=== PATIENT | male | born 1985 | race Caucasian/White ===

== ENCOUNTER 2023-06-23 18:03 | Observation (INO) | payer MEDICAID, SELFPAY ==
--- NOTE | ~2023-06-23 | XR_ITS ---
EXAMINATION: XR chest 1V portable DATE: 06/23/2023 18:28 INDICATION: Chest pain TECHNIQUE: frontal view of the chest was obtained. COMPARISON: None FINDINGS: The lungs are clear with no focal airspace opacities, pulmonary edema, pleural effusion or pneumothor ax. The cardiomediastinal silhouette is normal. Visualized bones and soft tissues are unremarkable. IMPRESSION: 1. Normal chest radiograph. Reviewed, dictated and finalized at location A. IMPRESSION: 1. Normal chest radiograph.
--- NOTE | ~2023-06-23 | MR_ITS ---
EXAMINATION: MR brain/brain stem wo/w con DATE: 06/24/2023 09:02 INDICATION: Altered mental status with syncopal episode TECHNIQUE: Magnetic resonance imaging (MRI) of the brain and brainstem was performed without and with 15 mL Multihance intravenous contrast. Sequences included sagittal and axial T1-weighted SE, axial d iffusion-weighted FS SE, axial T2*-weighted GRE, axial T2-weighted FLAIR, and axial T2-weighted FSE. Postcontrast axial and coronal T1-weighted SE was obtained. Apparent diffusion coefficient (ADC) maps were created. COMPARISON: Head CT dated 06/23/2023 FINDINGS: There are no areas of restricted diffusion to suggest acute infarction. No intracranial hemorrhage or abnormal intracranial mass lesion. There are no intraparenchymal signal abnormalities seen on the ot her pulse sequences. The ventricles are symmetric and normal in size. There are no abnormal extra-axi al fluid collections. Flow voids are seen in the cerebral arteries on the T2-weighted sequences consi stent with their expected patency. Visualized orbits and soft tissues are unremarkable. There are no areas of abnormal enhancement on the post contrast images. IMPRESSION: 1. Normal brain MR. Reviewed, dictated and finalized at location A. IMPRESSION: 1. Normal brain MR.
--- NOTE | ~2023-06-23 | CT_ITS ---
EXAMINATION: CT brain wo con DATE: 06/23/2023 20:31 INDICATION: Syncope TECHNIQUE: Computed tomography (CT) of the head was performed without intravenous contrast. Sagittal and coronal reconstructions were performed. The mA was adjusted according to patient size. Iterative reconstruction technique was employed. The dose-length product was 605.33 mGy-cm. COMPARISON: None FINDINGS: No acute intracranial hemorrhage, acute infarction or abnormal extra axial fluid collection. Couple s mall regions of decreased white matter attenuation in the anterior left frontal and posterior left te mporal lobes. Ventricles are normal and symmetric. No mass/mass effect. The orbits, paranasal sinuses and mastoid air cells are normal. IMPRESSION: 1. Couple small foci of decreased white matter attenuation in the left frontal and left temporal lobe s which is atypical for age. The differential diagnosis includes premature chronic small vessel ische alok disease (especially if the patient has cardiovascular risk factors), demyelinating disease such a s multiple sclerosis or acute disseminated encephalomyelitis (ADEM), CADASIL (especially if age 20-40 with prominent anterior temporal lobe or external capsule involvement), drug abuse (especially with cerebellar involvement), vasculitis, or reactive astrocytosis (gliosis) secondary to nonspecific etio logy. Consider further evaluation with pre and postcontrast MRI. Reviewed, dictated and finalized at location A. IMPRESSION: 1. Couple small foci of decreased white matter attenuation in the left frontal and left temporal lobes which is atypical for age. The differential diagnosis i ncludes premature chronic small vessel ischemic disease (especially if the maxi ent has cardiovascular risk factors), demyelinating disease such as multiple sc lerosis or acute disseminated encephalomyelitis (ADEM), CADASIL (especially if age 20-40 with prominent anterior temporal lobe or external capsule involvement ), drug abuse (especially with cerebellar involvement), vasculitis, or reactive astrocytosis (gliosis) secondary to nonspecific etiology. Consider further gertrudis luation with pre and postcontrast MRI.
--- NOTE | ~2023-06-23 | CT_ITS ---
EXAMINATION: CTA chest PE abdomen pel DATE: 06/23/2023 21:53 INDICATION: Shortness of breath and chest and abdominal pain TECHNIQUE: Computed tomography (CT) pulmonary angiogram of the chest was performed with 100 mL Omnipa que-350 intravenous contrast. Additional 3D reconstructions utilizing coronal maximum intensity proje ction (MIP) were performed. CT of the abdomen and pelvis was performed with intravenous contrast util izing the same contrast bolus following a short delay. Automated exposure control and iterative recon struction technique were employed. The dose-length product was 854.72 mGy-cm. COMPARISON: None FINDINGS: Chest: Excellent contrast opacification of the pulmonary arteries. There is mild streak artifact from dense contrast in the superior vena cava and right atrium. No significant motion living diagnostic quality study which demonstrates no pulmonary embolism. No pneumonia, pulmonary edema or other pulmonary infi ltrates. Tiny left pleural effusion. Heart size is normal. No pericardial effusion. Thoracic aorta is normal in caliber with no dissection. Bilateral gynecomastia. No pathologically enlarged thoracic ly mphadenopathy. Abdomen/pelvis: There is suggestion of a fine nodular liver surface which could be seen with cirrhosis. There is sple nomegaly measuring 14.0 cm in length along with a recanalized umbilical vein consistent with likely s econdary portal venous hypertension. There is prominent distention of the gallbladder measuring up to 5.5 cm in diameter but without evident wall thickening or pericholecystic inflammatory stranding to suggest acute cholecystitis. Bowels including the appendix are normal. There is a small amount of asc ites scattered throughout the abdomen and pelvis. No abscess or free intraperitoneal gas. Bladder is normal. Metallic densities likely representing a secondary clips along the bilateral spermatic cords. IMPRESSION: 1. Tiny left pleural effusion. No pulmonary embolism or other acute cardiopulmonary disease. 2. Suggestion of subtle liver surface nodularity suspicious for cirrhosis with likely secondary gualberto l venous hypertension characterized by splenomegaly and prominent recanalized umbilical vein. 3. Small amount of likely secondary ascites. 4. Prominent dilation of the gallbladder but without evident wall thickening or pericholecystic dustin rison to more specifically suggest acute cholecystitis. Correlate for Mathew and if clinically indica sissy could further evaluated with other right upper quadrant ultrasound or HIDA scan. Reviewed, dictated and finalized at location A. IMPRESSION: 1. Tiny left pleural effusion. No pulmonary embolism or other acute cardiopulmo nary disease. 2. Suggestion of subtle liver surface nodularity suspicious for cirrhosis with likely secondary portal venous hypertension characterized by splenomegaly and p rominent recanalized umbilical vein. 3. Small amount of likely secondary ascites. 4. Prominent dilation of the gallbladder but without evident wall thickening or pericholecystic comparison to more specifically suggest acute cholecystitis. C orrelate for Mathew and if clinically indicated could further evaluated with ot her right upper quadrant ultrasound or HIDA scan.
[2023-06-23 18:11] VITALS: BP 104/63; PULSE 63; RESP 15; O2SAT 100
--- NOTE | 2023-06-23 18:15 | ECG_ITS ---
Measurements Intervals [place] Rate: 54 P: -7 OH: 127 QRS: 10 QRSD: 122 T: 18 QT: 469 QTc: 445 Interpretive Statements SINUS BRADYCARDIA MODERATE INTRAVENTRICULAR CONDUCTION DELAY [110+ ms QRS DURATION] NO PREVIOUS ECG AVAILABLE FOR COMPARISON Electronically Signed On 06-24-2023 11:34:51 CDT by Rex Patel MD
--- NOTE | 2023-06-23 19:33 | PC.NURSE ---
This RN assumed care of patient. This RN took patient report from MYLA Rosenberg.
[2023-06-23 20:16] LABS: Basophils Percent Auto 0.7 % (0.2-1.2); Eosinophils Absolute Auto 0.3 K/mm3 (0-0.3); Eosinophils Percent Auto 5.1 % (0-4.4); Hemoglobin 10.7 g/dL (14.0-18.0); Immature Granulocyte Absolute 0.01 K/mm3 (0.00-0.031); Immature Granulocyte Percent A 0.2 % (0-0.5); Immature Platelet Fraction Pct 4.6 % (0.9-11.2); Lymphocytes Absolute Auto 1.74 K/mm3 (0.9-3.2); Lymphocytes Percent Auto 29.5 % (18.3-44.2); Mean Corpuscular HGB Conc 33.4 g/dl (32-36); Mean Corpuscular Hemoglobin 32.5 pg (26-34); Mean Corpuscular Volume 97.3 fl (80-100); Mean Platelet Volume 10.2 fl (7.4-10.4); Monocytes Absolute Auto 0.7 K/mm3 (0.1-0.6); Monocytes Percent Auto 11.9 % (2.6-8.5); Neutrophils Absolute Auto 3.1 K/mm3 (1.3-6.7); Neutrophils Percent Auto 52.6 % (45.5-73.1); Platelet Count Result 74 k/mm3 (150-375); Red Blood Count 3.29 M/mm3 (4.6-6.20); Red Cell Distribution Width 14.7 % (11.5-14.5); White Blood Count 5.9 K/mm3 (4.5-10.0)
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
[2023-06-23 20:26] LABS: Alanine Aminotransferase 25 U/L (6-50); Albumin Level 3.4 g/dL (3.5-5.1); Alkaline Phosphatase 71 U/L (38-126); Anion Gap 7 mmol/L (8-16); Aspartate Amino Transferase 46 U/L (17-59); Bilirubin,Total 4.1 mg/dL (0.2-1.3); Blood Urea Nitrogen 6 mg/dL (9-20); Calcium 8.9 mg/dL (8.4-10.2); Carbon Dioxide 24 mmol/L (22-30); Chloride 105 mmol/L (98-107); Estimated CRCL calculation 141 ml/min; Estimated Glomerular Filt Rate > 60; Glucose 87 mg/dL (65-110); Lipase 84 U/L (23-300); Potassium 3.5 mmol/L (3.4-5.0); Sodium 136 mmol/L (137-145)
[2023-06-23 20:37] LABS: INR 1.8
[2023-06-23 20:38] LABS: Anisocytosis 1+ (NORMAL); Partial Thromboplastin Time 39.3 SECONDS (22.3-36.8); Platelet Estimate Decreased (Adequate); Schistocytes Rare (NORMAL); Troponin I < 0.012 ng/mL (0.000-0.034)
[2023-06-23] MEDS: MORPHINE SULFATE (*CRX) 4 MG/ML INJ IV PUSH (20:39)
[2023-06-23] MEDS: ONDANSETRON INJ 4 MG/2 ML VIAL IV PUSH (20:39)
[2023-06-23 20:54] LABS: D Dimer 2.48 ug/mL (<0.48)
[2023-06-23 21:27] VITALS: TEMP 36.4
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
[2023-06-23 23:03] VITALS: O2SAT 98
[2023-06-23 23:24] LABS: Amphetamine Screen Urine Negative (Negative); Barbiturate Screen Urine Negative (Negative); Benzodiazepines Screen Urine Positive (Negative); Cannabinoid Screen Urine Positive (Negative); Cocaine Screen Urine Negative (Negative); Methadone Screen Urine Negative (Negative); Opiate Screen Urine Positive (Negative); Phencyclidine Screen Urine Negative (Negative)
[2023-06-24] VITALS (9 sets, daily range): BP systolic 98–106; BP diastolic 51–66; PULSE 51–82; RESP 16–18; TEMP 36.2–36.4; O2SAT 100
[2023-06-24 00:33] LABS: Troponin I < 0.012 ng/mL (0.000-0.034)
[2023-06-24 02:13] LABS: Troponin I < 0.012 ng/mL (0.000-0.034)
--- NOTE | 2023-06-24 02:26 | PC.NURSE ---
Spoke with Dr. Deluca about patient c/o uncontrolled pain. New order received for morphine 4 mg IVP Q6H PRN as patient was able to tolerate in ED.
[2023-06-24] MEDS: MORPHINE SULFATE (*CRX) 4 MG/ML INJ IV PUSH ×4 (02:37→20:19)
--- NOTE | 2023-06-24 06:00 | ECHO_ITS ---
Patient Info Name: Ar Velasquez Age: 37 years : 1985 Gender: Male Ht: 74 in Wt: 175 lbs BSA: 2.03 m2 HR: 78 bpm BP: 106 / 66 mmHg Technical Quality: Fair Exam Date: 06/24/2023 8:01 AM Exam Location: [facility] Pulmonary Exam Room: 332 Patient Status: Inpatient Admit Date: 06/23/2023 Staff Ordering Physician: Kristyn Chavez PA-C Electronics Utility Worker: Shelli Vaca RDCS Attending Provider: Brunilda Deluca MD Referring Physician: Scott GALARZA; Exam Type: CA echo doppler color flow Study Info Indications - CHEST PAIN SYNCOPE Complete two-dimensional, color flow and Doppler transthoracic echocardiogram is performed. Summary 1. Complete two-dimensional, color flow and Doppler transthoracic echocardiogram is performed. 2. Left ventricular systolic function is normal, estimated at 60-65%. 3. There is no increased left ventricular wall thickness. 4. Left ventricular chamber dimension is normal. 5. The left ventricular diastolic function is normal. 6. There is trace mitral valve regurgitation. 7. There is trace tricuspid valve regurgitation. 8. There is mild pulmonic regurgitation. 9. No pulmonary hypertension, estimated pulmonary arterial systolic pressure is 28 mmHg. Left Ventricle Left ventricular chamber dimension is normal. Left ventricular systolic function is normal, estimated at 60-65%. There is no increased left ventricular wall thickness. Left ventricular septal wall motion is normal. The left ventricular diastolic function is normal. Right Ventricle Right ventricular chamber dimension is normal. Right ventricular systolic function is normal. Left Atria Left atrial chamber dimension is normal. Right Atria Right atrial chamber dimension is normal. Atrial Septum Intact interatrial septum visualized by color flow imaging. Aortic Valve The aortic valve is trileaflet. There is no aortic valve sclerosis. There is no aortic valve stenosis. There is no aortic valve regurgitation. Pulmonic Valve The pulmonic valve is normal. There is no pulmonic valve stenosis. There is mild pulmonic regurgitation. Mitral Valve The mitral valve has normal leaflets. There is no mitral valve stenosis. There is trace mitral valve regurgitation. Tricuspid Valve The tricuspid valve leaflets are normal. There is no significant tricuspid valve stenosis. There is trace tricuspid valve regurgitation. No pulmonary hypertension, estimated pulmonary arterial systolic pressure is 28 mmHg. Pericardium/Pleural The pericardium appears normal. There is no pericardial effusion. Inferior Vena Cava Normal inferior vena cava with >50% collapse upon inspiration consistent with Empty right atrial pressure, 5 mmHg. Aorta The aortic root size at the sinus of Valsalva is normal. The prox ascending aorta size is normal. Left Ventricular Outflow Tract Name Value Normal LVOT 2D LVOT Diameter 2.0 cm LVOT Doppler LVOT Peak Gradient 4 mmHg LVOT Mean Gradient 2 mmHg LVOT VTI 23 cm LVOT VTI/AV VTI Ratio 0.9 LVOT Stroke Volume 74 ml LV
[2023-06-24 07:27] LABS: Appearance Urine Clear (Clear); Bilirubin Urine 1+ (Negative); Blood Urine Negative (Negative); Color Urine Dark Yellow (Yellow); Glucose Urine UA Negative (Negative); Ketones Urine Negative (Negative); Leukocyte Esterase Ur Negative LEU/UL (Negative); Nitrate Urine Negative (Negative); Protein Urine Negative (Negative); pH Urine 6.5 (5.0-9.0)
[2023-06-24 07:42] LABS: Specific Grav Ur 1.045 (1.001-1.035)
[2023-06-24 07:43] LABS: Add Urine Microscopic? NO
[2023-06-24] MEDS: LORazepam (*CRX) 1 MG TABLET PO ×3 (10:24→20:20)
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
--- NOTE | 2023-06-24 12:15 | PC.NURSE ---
Prescription bottles noted with patient belongings per floor RN. A bottle of alprazolam containing 6 tablets noted as well as an empty bottle of Ativan that previously contained 1 mg tablets. Inventory verified with floor RN and contained and placed in secure bag in patient safe. Hospitalist made aware.
--- NOTE | 2023-06-24 14:00 | PC.NURSE ---
Prescription bottles noted with patient belongings. A bottle of alprazolam containing 6 tablets noted as well as an empty bottle of Ativan that previously contained 1 mg tablets. Inventory verified with floor chargeback analyst and contained and placed in secure bag in patient safe. Hospitalist made aware.
--- NOTE | 2023-06-24 16:12 | PC.NURSE ---
On 06/24/23, the [employer]NAGER COMPANY, provided care and completed [employer] documentation on this patient. I have reviewed the [employer]NAGER [employer]'s documentation and agree with the findings.
[2023-06-24] MEDS: rifAXIMin 550 MG TABLET PO (17:02)
[2023-06-25] VITALS (7 sets, daily range): BP systolic 96–106; BP diastolic 54–57; PULSE 60–66; RESP 18; TEMP 36.1; O2SAT 100
[2023-06-25] MEDS: MORPHINE SULFATE (*CRX) 4 MG/ML INJ IV PUSH (03:02)
[2023-06-25 08:15] LABS: Ammonia 50 umol/L (9-30)
[2023-06-25] MEDS: THIAMINE HCL 100 MG TABLET PO (08:39)
[2023-06-25] MEDS: ESCITALOPRAM OXALATE 10 MG TABLET PO (08:39)
[2023-06-25] MEDS: rifAXIMin 550 MG TABLET PO (08:39)
[2023-06-25] MEDS: buPROPion HCL SR (12 HR) 150 MG TAB PO (10:25)
[2023-06-25] MEDS: MORPHINE SULFATE (*CRX) 4 MG/ML INJ 2 MG IV PUSH (12:05)
[2023-06-25] MEDS: LORazepam (*CRX) 1 MG TABLET PO (12:06)
--- NOTE | 2023-06-25 13:47 | PM.DS ---
DS: Admitting Diagnosis Discharge Date 06/25/23 Admitting Diagnosis Syncope DS: Discharge Diagnosis Discharge Diagnosis (1) Syncope: Qualifiers: Syncope type: unspecified Qualified Code(s): R55 - Syncope and collapse Code(s): R55 - Syncope and collapse Status: Acute (2) Chest pain: Qualifiers: Chest pain type: unspecified Qualified Code(s): R07.9 - Chest pain, unspecified Code(s): R07.9 - Chest pain, unspecified Status: Acute (3) Hepatic cirrhosis: Code(s): K74.60 - Unspecified cirrhosis of liver Status: Acute (4) Chronic pain: Code(s): G89.29 - Other chronic pain Status: Acute (5) Anemia: Qualifiers: Anemia type: unspecified type Qualified Code(s): D64.9 - Anemia, unspecified Code(s): D64.9 - Anemia, unspecified Status: Acute (6) Thrombocytopenia: Code(s): D69.6 - Thrombocytopenia, unspecified Status: Acute DS: Summary Hospital Course Reason for hospitalization: 37yo male with hx of chronic pain syndrome, hepatic cirrhosis and alcohol dependence here after having a syncopal event. Please see H&P for details. Hospital Course: According to the notes, patient was having an argument with his girlfriend and then had a syncopal episode. He awoke then began to have chest pain. He was seen in the ED. His vitals are stable.? He was neurologically intact.? Normal WBC. Plt count low at 74K but felt related to cirrhosis and splenomegaly. Also normocytic anemia with hemoglobin of 10.7.? No old labs to compare. INR 1.8 with elevated PT and PTT again felt related to his cirrhosis. CMP was essentially normal except for TBili 4.1, Albumin 3.4 and sodium 136. Troponin negative x 3. Ammonia level was 50 but he was alert and oriented x4. UDS was positive for opiates, benzo, and cannabinoids. He is on lorazepam as a home medication. He did receive morphine prior to UDS collected. EKG showing sinus bradycardia (rate 54) and moderate IVCD but no acute ST changes.? D-dimer was elevated prompting CTA. CTA of the chest/abd/pelvis showed a tiny left pleural effusion but no PE or other acute cardiopulmonary abnormality.? Suspicion of cirrhosis with secondary portal venous hypertension characterized by splenomegaly and prominent recanalized umbilical vein with small amount of ascites.? Prominent dilation of the gallbladder but without evident wall thickening or pericholecystic fluid to suggest acute cholecystitis.?CT scan of the brain shows a couple small foci of decreased white matter attenuation in the left frontal and left temporal lobes which is atypical for age.? Brain MRI with/without however was read as normal. Echo showing EF 60-65% and normal diastolic function. He was monitored on telemetry and no significant dysrhythmias noted. Propranolol held due to soft blood pressure and occasional bradycardia. [place] that he may have taken too much of his benzodiazepine that caused the syncope. He had prn morphine here but this was weaned and it was explained that he would not be going home with narcotics. Recommended patient wean himself off the lorazepam or stop altogether. Care coordination provided information about local services including shelters. He overall did well and was able to be discharged home on 06/25/23. Status at Discharge Cognitive/behavioral status at discharge: stable Time Spent with Patient Time attestation: Total time spent providing and/or coordinating discharge services: 35 minutes Time spent: Greater than 30 minutes Exam Narrative: AF 96.9 106/57 60 18 100% ra Gen - NARD sitting up in bed watching a movie Chest - CTA bilaterally, nml RR CV - RRR S1/S2. Tele showing no significant dysrhythmias Abd - Soft, NT/ND, Positive BS Ext - No pedal edema Neuro - Alert and oriented x4 Psych - Nml mood and affect Skin - Warm and dry DS: Data Data Completed and Pending Labs on day of discharge: Labs fr
--- NOTE | 2023-06-25 16:14 | PC.NURSE ---
All home meds removed from pt safe and returned to pt 06/25/23 at time of discharge. Inventory verified with taffy puller.
== END 2023-06-25 16:20 | disposition home or self-care (01) ==
LOC: ANHED 18:43 → ANH3MEDSUR 06-24 15:01
PROVIDERS: Emergency Medicine; Admitting Provider Internal Medicine; Emergency Provider Physician Assistant; Visit Provider Internal Medicine
DX: R55 Syncope and collapse (principal); R07.9 Chest pain, unspecified; G89.4 Chronic pain syndrome; D64.9 Anemia, unspecified; K74.60 Unspecified cirrhosis of liver; R10.9 Unspecified abdominal pain; R00.1 Bradycardia, unspecified; I45.4 Nonspecific intraventricular block; R90.82 White matter disease, unspecified; I37.1 Nonrheumatic pulmonary valve insufficiency; D69.6 Thrombocytopenia, unspecified; R79.1 Abnormal coagulation profile; Z77.22 Contact with and (suspected) exposure to environmental tobacco smoke (acute) (chronic); F10.20 Alcohol dependence, uncomplicated; F12.90 Cannabis use, unspecified, uncomplicated; Z79.899 Other long term (current) drug therapy
CPT/HCPCS: 36415; 70450; 70553; 71045; 71275; 74177; 80053; 80307; 81003; 82140; 83690; 84484; 85025; 85055; 85380; 85610; 85730; 93005; 93306; 96374; 96375; 96376; 99285; A9270; A9577; G0378; G0379; J2270; J2405; Q9967

== ENCOUNTER 2023-08-29 13:23 | Emergency (ER) | payer BC, SELFPAY ==
--- NOTE | ~2023-08-29 | CT_ITS ---
EXAMINATION: CT abdomen pelvis w con DATE: 08/29/2023 15:16 INDICATION: Abdominal pain. [place] a pop in the abdomen yesterday. TECHNIQUE: Computed tomography (CT) of the abdomen and pelvis was performed with 100 CC Omnipaque 350 intravenous contrast. Automated exposure control and iterative reconstruction technique were employe d. Exam dose: 502.26 mGy-cm total exam DLP. COMPARISON: 06/23/2023 CTA chest abdomen pelvis FINDINGS: Minimal dependent right lower lobe atelectasis. The lung bases are clear of infiltrate or c onsolidation. Normal heart size. No pericardial or pleural effusion. Minimal perihepatic and dependent pelvic ascites. Splenomegaly. Recanalized umbilical vein. Findings suggest cirrhosis, portal vein hypertension. No hepatic, splenic, pancreatic, and adrenal or renal space-occupying mass lesion is detected. No uri nary tract calculus or hydroureteronephrosis. The urinary bladder and prostate gland are unremarkable . No bowel obstruction, bowel wall thickening, pneumatosis or intraperitoneal free air is detected. Normal caliber of the abdominal aorta. No intraperitoneal or retroperitoneal or pelvic mass lesion or adenopathy. Healing anterior right fifth rib fracture. Surgical clips along spermatic cords. Included skeletal structures are otherwise unremarkable. IMPRESSION: Healing anterior right fifth rib fracture Minimal ascites, splenomegaly, recanalized umbilical vein, suggesting cirrhosis Reviewed, dictated and finalized at [facility]. Reviewed, dictated and finalized at location [facility].
[2023-08-29 13:26] VITALS: BP 114/47; PULSE 81; RESP 18; TEMP 36.8; O2SAT 100
[2023-08-29 14:00] LABS: Basophils Percent Auto 0.6 % (0.2-1.2); Eosinophils Absolute Auto 0.6 K/mm3 (0-0.3); Eosinophils Percent Auto 11.4 % (0-4.4); Hemoglobin 10.9 g/dL (14.0-18.0); Immature Granulocyte Absolute 0.01 K/mm3 (0.00-0.031); Immature Granulocyte Percent A 0.2 % (0-0.5); Immature Platelet Fraction Pct 4.9 % (0.9-11.2); Lymphocytes Absolute Auto 1.23 K/mm3 (0.9-3.2); Lymphocytes Percent Auto 25.5 % (18.3-44.2); Mean Corpuscular Hemoglobin 31.9 pg (26-34); Mean Corpuscular Volume 96.5 fl (80-100); Mean Platelet Volume 10.4 fl (7.4-10.4); Monocytes Absolute Auto 0.5 K/mm3 (0.1-0.6); Monocytes Percent Auto 10.2 % (2.6-8.5); Neutrophils Absolute Auto 2.5 K/mm3 (1.3-6.7); Neutrophils Percent Auto 52.1 % (45.5-73.1); Platelet Count Result 65 k/mm3 (150-375); Red Blood Count 3.42 M/mm3 (4.6-6.20); White Blood Count 4.8 K/mm3 (4.5-10.0)
[2023-08-29 14:09] LABS: Alanine Aminotransferase 24 U/L (6-50); Albumin Level 3.6 g/dL (3.5-5.1); Alkaline Phosphatase 100 U/L (38-126); Anion Gap 4 mmol/L (8-16); Aspartate Amino Transferase 45 U/L (17-59); Blood Urea Nitrogen 9 mg/dL (9-20); Calcium 9.7 mg/dL (8.4-10.2); Carbon Dioxide 26 mmol/L (22-30); Chloride 105 mmol/L (98-107); Estimated CRCL calculation 162 ml/min; Estimated Glomerular Filt Rate > 60; Glucose 94 mg/dL (65-110); Lipase 105 U/L (23-300); Potassium 3.7 mmol/L (3.4-5.0); Sodium 135 mmol/L (137-145)
[2023-08-29 14:13] LABS: Ovalocytes 1+ (NORMAL); Platelet Estimate Decreased (Adequate); Schistocytes None Seen (NORMAL)
--- NOTE | 2023-08-29 15:37 | ED.ABDPAIN ---
HPI - Abdominal Pain General Chief Complaint: Abdominal Pain Stated Complaint: left abd pain Time Seen by Provider: 08/29/23 15:37 Source: patient Mode of arrival: ambulatory Limitations: no limitations History of Present Illness HPI narrative: 38 years old white male was sitting on recliner, try to reach forward to get his dog, felt a pop at the left upper quadrant. Worse with movement, breathing, better with sitting still. He denies any fever, chills, nausea, vomiting, chest pain or shortness of breath. Related Data Home Medications Medication Instructions Recorded Confirmed Wellbutrin XL 150 mg PO BID 06/24/23 06/24/23 escitalopram oxalate 10 mg PO DAILY 06/24/23 06/24/23 propranolol 10 mg PO BID 06/24/23 06/24/23 rifaximin 550 mg PO BID 06/24/23 06/24/23 thiamine HCl (vitamin B1) 100 mg 100 mg PO DAILY 06/24/23 06/24/23 tablet Allergies Allergy/AdvReac Type Severity Reaction Status Date / Time hydromorphone Allergy Hives Verified 06/23/23 20:34 clindamycin AdvReac Other Verified 06/24/23 10:05 tramadol AdvReac Other Verified 06/24/23 10:05 Review of Systems Review of Systems: All systems reviewed & are unremarkable except as noted in HPI and below PMFSH Past Medical History Medical History History of cirrhosis Social History Social History Smoking status: Never smoker Second hand tobacco smoke exposure: Yes Alcohol intake: former Drinks per week: 0 Substance use: current Substance use type: marijuana Lack of Transportation: YES Lack of Food: Often True Current Housing: I Have Housing Concerned About Future Housing: YES Difficulty Paying Gas/Electric Bills: No Difficulty Paying for Meds: YES Currently Unemployed: YES Education: Master's Degree or Higher Difficulty w/ Childcare or Family Care: No Spiritual care concerns: No Exam Narrative: General appearance: Well-developed, well-nourished Skin: Normal color Head: Normocephalic, nontraumatic Eyes: Clear conjunctiva ENT: Oropharynx normal, ears normal, nose normal Neck: Supple, nontender Chest and respiratory: Airway patent, no respiratory distress, no accessory muscle use Heart: Regular rate/rhythm Abdomen: Soft, slight tenderness left upper quadrant and left lower ribs, no bruises, no swelling or rash, no organomegaly, quiet bowel sounds Vascular: Normal peripheral pulses, normal capillary refill. Musculoskeletal: Normal range of motion, nontender back Neurologic: Alert and oriented ?3, ETL ANALYST DEVELOPER is normal as tested, no gross motor deficit Course Reevaluation(s) Reevaluation #1: No new changes compared to on arrival Vital Signs Vital signs: Vital Signs Temperature 36.8 C 08/29/23 13:26 Pulse Rate 81 08/29/23 13:26 Respiratory Rate 18 08/29/23 13:26 Blood Pressure 114/47 L 08/29/23 13:26 Pulse Oximetry 100 08/29/23 13:26 Oxygen Delivery Room Air 08/29/23 13:26 Temperature 36.8 C 08/29/23 13:26 Pulse Rate 81 08/29/23 13:26 Respiratory Rate 18 08/29/23 13:26 Blood Pressure 114/47 L 08/29/23 13:26 Pulse Oximetry 100 08/29/23 13:26 Oxygen Delivery Room Air 08/29/23 13:26 MDM - Abdominal Pain MDM Narrative Medical decision making narrative: Patient presents with the above symptoms, physical examination as above, vital signs unremarkable, differential diagnosis include musculoskeletal pain, rib fracture, work-up today showed no acute abnormality to explain patient condition Medical Records Attestation: I reviewed the patient's medical records. Lab Data Attestation: I reviewed
[2023-08-29 15:58] LABS: Appearance Urine Clear (Clear); Bilirubin Urine Negative (Negative); Blood Urine Negative (Negative); Color Urine Yellow (Yellow); Glucose Urine UA Negative (Negative); Ketones Urine Negative (Negative); Leukocyte Esterase Ur Negative LEU/UL (Negative); Nitrate Urine Negative (Negative); Protein Urine Negative (Negative); pH Urine 6.5 (5.0-9.0)
[2023-08-29 15:59] LABS: Specific Grav Ur 1.056 (1.001-1.035)
[2023-08-29 16:00] LABS: Add Urine Microscopic? NO
== END 2023-08-29 16:50 | disposition home or self-care (01) ==
PROVIDERS: Emergency Medicine; Emergency Provider Emergency Medicine; PCP Family Medicine
DX: M79.18 Myalgia, other site (principal); K74.60 Unspecified cirrhosis of liver; R16.1 Splenomegaly, not elsewhere classified; R18.8 Other ascites
CPT/HCPCS: 36415; 74177; 80053; 81003; 83690; 85025; 85055; 99284; Q9967

== ENCOUNTER 2023-11-25 23:32 | Emergency (ER) | payer BC, SELFPAY ==
--- NOTE | ~2023-11-25 | CT_ITS ---
EXAMINATION: CTA chest PE abdomen pel DATE: 11/26/2023 06:17 DIRECTOR OF PLAYER PERSONNEL INDICATION: Left-sided chest pain. Evaluate for pulmonary embolism. Abdominal pain. TECHNIQUE: Computed tomographic angiography (CTA) of the chest, abdomen, and pelvis was performed wit hout and with 100 mL Omnipaque-350 intravenous contrast. The dose-length product was 802.85 mGy-cm. M aximum intensity projection 3D-reconstructions of the aorta and other arteries were constructed by juan driscoll technologist on a separate workstation. COMPARISON: CT dated 08/29/2023. FINDINGS: CHEST CTA: Study technically adequate without evidence for pulmonary embolism. Heart size normal. No significant pleural or pericardial effusion. No thoracic lymphadenopathy. No endobronchial lesions. No focal air space consolidation. No pneumothorax. No suspicious pulmonary nodules or masses. ABDOMEN AND PELVIS CTA: Small amount of ascites. Gallbladder is moderately distended. There is splenomegaly. There is recanal ization of the umbilical vein, consistent with cirrhosis with portal hypertension nonobstructive lazara l gas pattern. Nonobstructive bowel gas pattern. Colonic diverticulosis without evidence for divertic ulitis. No significant vascular abnormality. No lymphadenopathy. IMPRESSION: 1. No acute cardiopulmonary disease. No evidence for pulmonary embolism. 2: Cirrhosis with evidence for portal hypertension and splenomegaly. Trace ascites. Reviewed, dictated and finalized at location [facility]. CTOR OF PLAYER PERSONNEL IMPRESSION: 1. No acute cardiopulmonary disease. No evidence for pulmonary embolism. 2: Cirrhosis with evidence for portal hypertension and splenomegaly. Trace asci rafael.
[2023-11-25 23:38] VITALS: BP 125/66; PULSE 67; RESP 18; TEMP 36.7; O2SAT 100
[2023-11-25 23:57] VITALS: PULSE 65; RESP 14; O2SAT 100
[2023-11-26] VITALS (28 sets, daily range): BP systolic 119–129; BP diastolic 57–73; PULSE 56–72; RESP 13–23; O2SAT 92–100
--- NOTE | 2023-11-26 00:06 | PC.NURSE ---
Patient gave this RN phone number for [facility] in [place] transplant team, phone number is [phone].
[2023-11-26] MEDS: MORPHINE SULFATE (*CRX) 4 MG/ML INJ IV PUSH ×3 (00:16→03:34)
[2023-11-26] MEDS: ONDANSETRON INJ 4 MG/2 ML VIAL IV PUSH (00:16)
[2023-11-26] MEDS: SODIUM CHLORIDE 0.9% IV 1,000 ML 999 ML IV CONT (00:17)
[2023-11-26 00:29] LABS: Basophils Absolute Auto 0.1 K/mm3 (0.0-0.1); Basophils Percent Auto 0.9 % (0.2-1.2); Eosinophils Absolute Auto 0.2 K/mm3 (0-0.3); Eosinophils Percent Auto 4.5 % (0-4.4); Hematocrit 36.4 % (42.0-52.0); Hemoglobin 12.4 g/dL (14.0-18.0); Immature Granulocyte Absolute 0.01 K/mm3 (0.00-0.031); Immature Granulocyte Percent A 0.2 % (0-0.5); Immature Platelet Fraction Pct 5.3 % (0.9-11.2); Lymphocytes Absolute Auto 1.59 K/mm3 (0.9-3.2); Lymphocytes Percent Auto 29.6 % (18.3-44.2); Mean Corpuscular HGB Conc 34.1 g/dl (32-36); Mean Corpuscular Hemoglobin 30.2 pg (26-34); Mean Corpuscular Volume 88.8 fl (80-100); Mean Platelet Volume 10.5 fl (7.4-10.4); Monocytes Absolute Auto 0.7 K/mm3 (0.1-0.6); Monocytes Percent Auto 12.3 % (2.6-8.5); Neutrophils Absolute Auto 2.8 K/mm3 (1.3-6.7); Neutrophils Percent Auto 52.5 % (45.5-73.1); Platelet Count Result 73 k/mm3 (150-375); White Blood Count 5.4 K/mm3 (4.5-10.0)
[2023-11-26 00:42] LABS: Alanine Aminotransferase 33 U/L (6-50); Alkaline Phosphatase 113 U/L (38-126); Anion Gap 8 mmol/L (8-16); Aspartate Amino Transferase 55 U/L (17-59); Bilirubin,Total 2.2 mg/dL (0.2-1.3); Blood Urea Nitrogen 15 mg/dL (9-20); Calcium 9.9 mg/dL (8.4-10.2); Carbon Dioxide 26 mmol/L (22-30); Chloride 104 mmol/L (98-107); Estimated CRCL calculation 132 ml/min; Estimated Glomerular Filt Rate > 60; Glucose 99 mg/dL (65-110); Lipase 120 U/L (23-300); Magnesium 1.7 mg/dL (1.6-2.3); Potassium 3.7 mmol/L (3.4-5.0); Sodium 138 mmol/L (137-145)
[2023-11-26 00:44] LABS: INR 1.3; Prothrombin Time 17.3 Seconds (11.1-14.7)
[2023-11-26 00:45] LABS: Partial Thromboplastin Time 38.7 SECONDS (22.3-36.8)
[2023-11-26 00:47] LABS: Lactic Acid Reflex 1.3 mmol/L (0.7-2.0)
[2023-11-26 00:51] LABS: Ammonia < 9 umol/L (9-30)
[2023-11-26 00:58] LABS: Appearance Urine Clear (Clear); Bilirubin Urine Negative (Negative); Blood Urine Negative (Negative); Color Urine Yellow (Yellow); Glucose Urine UA Negative (Negative); Ketones Urine 2+ mg/dL (Negative); Leukocyte Esterase Ur Negative LEU/UL (Negative); Nitrate Urine Negative (Negative); Protein Urine Negative (Negative); Specific Grav Ur 1.026 (1.001-1.035); pH Urine 6.5 (5.0-9.0)
[2023-11-26 01:01] LABS: Add Urine Microscopic? NO
--- NOTE | 2023-11-26 01:06 | PC.NURSE ---
Patient taken to CT via stretcher at this time.
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
[2023-11-26 03:48] LABS: Hematocrit 35.8 % (42.0-52.0); Hemoglobin 11.9 g/dL (14.0-18.0)
--- NOTE | 2023-11-26 04:07 | PC.NURSE ---
Patient being trialed off oxygen.
--- NOTE | 2023-11-26 04:09 | PC.NURSE ---
Attempted to call patients SO, Kalpana upon request. No answer, message was left.
== END 2023-11-26 04:29 | disposition home or self-care (01) ==
PROVIDERS: Emergency Provider Emergency Medicine; PCP Emergency Medicine
DX: K72.10 Chronic hepatic failure without coma (principal); K74.60 Unspecified cirrhosis of liver; R16.1 Splenomegaly, not elsewhere classified; K76.6 Portal hypertension
CPT/HCPCS: 36415; 71275; 74177; 80053; 81003; 82140; 83605; 83690; 83735; 85014; 85018; 85025; 85055; 85610; 85730; 86850; 86900; 86901; 96361; 96374; 96375; 96376; 99284; J2270; J2405; J7030; Q9967

== ENCOUNTER 2023-11-30 09:58 | Emergency (ER) | payer BC, SELFPAY ==
[2023-11-30] VITALS (24 sets, daily range): BP systolic 91–146; BP diastolic 48–76; PULSE 58–71; RESP 14–24; TEMP 36.6–36.8; O2SAT 90–100
--- NOTE | ~2023-11-30 | CT_ITS ---
EXAMINATION: CT abdomen pelvis w con DATE: 11/30/2023 11:33 INDICATION: Lower gastrointestinal hemorrhage. TECHNIQUE: Computed tomography (CT) of the abdomen and pelvis was performed with 100 mL Omnipaque 350 intravenous contrast. Automated exposure control and iterative reconstruction technique were employe d. The dose-length product was 496.90 mGy-cm. COMPARISON: CT abdomen and pelvis 11/26/2023 FINDINGS: The visualized portions of the lung bases are clear without pneumonia or pleural effusion. The heart size is normal. No pericardial effusion. Paraesophageal varices are noted. The liver demons trates surface nodularity, consistent with cirrhosis. There is a paraumbilical portacaval shunt. The gallbladder is distended, likely secondary to fasting. There is moderate splenomegaly. The pancreas, adrenal glands, and kidneys are normal. There are no dilated loops of bowel. The appendix is not visu alized. There are no pathologically enlarged lymph nodes. There is a small volume of ascites. IMPRESSION: 1. Cirrhosis of the liver with portal venous hypertension. 2. Small volume of ascites. Reviewed, dictated and finalized at location A. SE SPECIALIST
[2023-11-30 10:33] LABS: Basophils Percent Auto 0.5 % (0.2-1.2); Eosinophils Absolute Auto 0.3 K/mm3 (0-0.3); Eosinophils Percent Auto 4.9 % (0-4.4); Hematocrit 37.6 % (42.0-52.0); Hemoglobin 12.5 g/dL (14.0-18.0); Immature Granulocyte Absolute 0.02 K/mm3 (0.00-0.031); Immature Granulocyte Percent A 0.4 % (0-0.5); Immature Platelet Fraction Pct 6.5 % (0.9-11.2); Lymphocytes Absolute Auto 1.19 K/mm3 (0.9-3.2); Lymphocytes Percent Auto 20.9 % (18.3-44.2); Mean Corpuscular HGB Conc 33.2 g/dl (32-36); Mean Corpuscular Hemoglobin 30.2 pg (26-34); Mean Corpuscular Volume 90.8 fl (80-100); Mean Platelet Volume 11.1 fl (7.4-10.4); Monocytes Absolute Auto 0.6 K/mm3 (0.1-0.6); Monocytes Percent Auto 10.2 % (2.6-8.5); Neutrophils Absolute Auto 3.6 K/mm3 (1.3-6.7); Neutrophils Percent Auto 63.1 % (45.5-73.1); Platelet Count Result 73 k/mm3 (150-375); Red Blood Count 4.14 M/mm3 (4.6-6.20); Red Cell Distribution Width 14.6 % (11.5-14.5); White Blood Count 5.7 K/mm3 (4.5-10.0)
[2023-11-30] MEDS: ONDANSETRON INJ 4 MG/2 ML VIAL IV PUSH (10:33)
[2023-11-30] MEDS: fentaNYL CITRATE INJ (*CRX) 100 MCG/2 ML VIAL 50 MCG IV PUSH (10:36)
[2023-11-30] MEDS: PANTOPRAZOLE SODIUM IV 40 MG VIAL 80 MG IV PUSH (10:41)
[2023-11-30 10:42] LABS: Alanine Aminotransferase 39 U/L (6-50); Alkaline Phosphatase 127 U/L (38-126); Anion Gap 10 mmol/L (8-16); Aspartate Amino Transferase 59 U/L (17-59); Bilirubin,Total 2.4 mg/dL (0.2-1.3); Blood Urea Nitrogen 14 mg/dL (9-20); Calcium 9.8 mg/dL (8.4-10.2); Carbon Dioxide 22 mmol/L (22-30); Chloride 106 mmol/L (98-107); Estimated CRCL calculation 132 ml/min; Estimated Glomerular Filt Rate > 60; Glucose 115 mg/dL (65-110); Lipase 146 U/L (23-300); Magnesium 1.7 mg/dL (1.6-2.3); Potassium 3.6 mmol/L (3.4-5.0); Sodium 138 mmol/L (137-145)
[2023-11-30] MEDS: OCTREOTIDE ACETATE 50 MCG/ML VIAL IV PUSH (10:42)
[2023-11-30 10:43] LABS: Ammonia < 9 umol/L (9-30); Lactic Acid Reflex 2.7 mmol/L (0.7-2.0)
[2023-11-30 10:43] LABS: INR 1.3; Partial Thromboplastin Time 34.2 SECONDS (22.3-36.8); Prothrombin Time 16.5 Seconds (11.1-14.7)
--- NOTE | 2023-11-30 10:54 | ECG_ITS ---
Measurements Intervals [place] Rate: 59 P: 7 DE: 161 QRS: -7 QRSD: 106 T: 29 QT: 436 QTc: 433 Interpretive Statements SINUS BRADYCARDIA POSSIBLE LEFT VENTRICULAR HYPERTROPHY [VOLTAGE CRITERIA PLUS LAE OR QRS WIDENING] COMPARED TO ECG 06/23/2023 18:19:26 NO SIGNIFICANT CHANGES Electronically Signed On 11-30-2023 14:05:44 PAYROLL PROCESSOR by Michael Mcfarlane M.D.
[2023-11-30 11:06] LABS: Ethanol < 10 mg/dL (<10)
[2023-11-30] MEDS: HALOPERIDOL LACTATE 5 MG/ML VIAL IV PUSH (11:10)
[2023-11-30] MEDS: MORPHINE SULFATE (*CRX) 2 MG/ML INJ IV PUSH (13:21)
[2023-11-30 13:28] LABS: Reflex Lactic Acid Yes or No Add Lactic
--- NOTE | 2023-11-30 13:46 | ED.GIBLEED ---
HPI - GI Bleed General Chief complaint: GI Bleed Stated complaint: GI BLEED Time Seen by Provider: 11/30/23 10:11 History of Present Illness HPI Narrative: 38M with history of cirrhosis presents with persistent nausea/vomiting and abdominal pain, worse today; cannot keep anything including his medications down. Related Data Home Medications Medication Instructions Recorded Confirmed Wellbutrin XL 150 mg PO BID 06/24/23 06/24/23 escitalopram oxalate 10 mg PO DAILY 06/24/23 06/24/23 propranolol 10 mg PO BID 06/24/23 06/24/23 rifaximin 550 mg PO BID 06/24/23 06/24/23 thiamine HCl (vitamin B1) 100 mg 100 mg PO DAILY 06/24/23 06/24/23 tablet Allergies Allergy/AdvReac Type Severity Reaction Status Date / Time hydromorphone Allergy Hives Verified 06/23/23 20:34 clindamycin AdvReac Other Verified 06/24/23 10:05 tramadol AdvReac Other Verified 06/24/23 10:05 Review of Systems Review of Systems: CONST: No fever. HEENT: No sore throat C/V: No chest pain RESP: No cough GI: Reports abdominal pain, nausea, vomiting : No dysuria. M/S: No joint pain. SKIN: No rash. NEURO: [No headache or focal numbness or weakness] PSYCH: [No depression] [facility] Past Medical History Medical History History of cirrhosis Social History Social History Smoking status: Never smoker Second hand tobacco smoke exposure: Yes Alcohol intake: former Drinks per week: 0 Substance use: current Substance use type: marijuana Lack of Transportation: YES Lack of Food: Often True Current Housing: I Have Housing Concerned About Future Housing: YES Difficulty Paying Gas/Electric Bills: No Difficulty Paying for Meds: YES Currently Unemployed: YES Education: Master's Degree or Higher Difficulty w/ Childcare or Family Care: No Spiritual care concerns: No Exam Narrative: EXAMINATION OF ORGAN SYSTEMS/BODY AREAS: Constitutional: Vital signs per nursing GENERAL: Curled up and retching uncontrollably into emesis bag; looks miserable HEAD: Normal with no signs of head trauma. EYES: EOMI, conjunctiva normal ENT: Hearing grossly intact LUNGS: Nonlabored breathing. HEART: [Regular rate and rhythm] ABD: [Soft], no focal tenderness RECTAL: Brown stool, guaiac negative EXT: Normal range of motion SKIN: [No rashes or lesions.] NEURO: [Alert and oriented x 3. No gross focal sensory or strength deficits.] Course Vital Signs Vital signs: Vital Signs Temperature 98.2 F 11/30/23 10:00 Pulse Rate 59 L 11/30/23 10:00 Respiratory Rate 16 11/30/23 10:00 Blood Pressure 142/76 H 11/30/23 10:00 Pulse Oximetry 100 11/30/23 10:00 Temperature 98.2 F 11/30/23 10:00 Pulse Rate 69 11/30/23 13:01 Respiratory Rate 17 11/30/23 13:01 Blood Pressure 91/60 L 11/30/23 13:01 Pulse Oximetry 98 11/30/23 13:01 MDM - GI Bleed MDM Narrative Medical decision making narrative: Electronic medical record was reviewed. Patient presented to the ED with complaint of [abdominal pain and vomiting]. Vitals [were within acceptable limits]. Physical exam revealed actively retching patient with soft abdomen, patient appears very uncomfortable. Based on the patient's history and physical exam, my differential includes but is not limited to [gastritis, gastroenteritis, cholecystitis, pancreatitis, SBP, CHS; doubt variceal bleed given tiny amount of blood tinging the emesis and guaiac neg]. [IV access was established by nursing staff. Patient was given zofran, protonix, ceftriaxone, fentanyl, octreotide]. CBC, BMP, lipase, LFTs, bilirubin and alk phos were obtained. Labs were pertinent for stable Hgb. [Decision was made to obtain a CT-abdomen to evaluate for acute abdominal process. This shows cirrhosis without much change from prior.] On reevaluation, the patient is still retching; given my concern for CHS, I
== END 2023-11-30 14:30 | disposition home or self-care (01) ==
PROVIDERS: Emergency Provider Emergency Medicine; PCP Emergency Medicine
DX: R11.2 Nausea with vomiting, unspecified (principal); R10.9 Unspecified abdominal pain; K74.60 Unspecified cirrhosis of liver; R94.31 Abnormal electrocardiogram [ECG] [EKG]; R00.1 Bradycardia, unspecified
CPT/HCPCS: 36415; 74177; 80053; 80307; 82140; 83605; 83690; 83735; 85025; 85055; 85610; 85730; 86850; 86900; 86901; 93005; 96365; 96375; 99284; C9113; J0696; J1630; J2270; J2354; J2405; J3010; Q9967

== ENCOUNTER 2024-01-01 22:56 | Emergency (ER) | payer BC, SELFPAY ==
--- NOTE | ~2024-01-01 | CT_ITS ---
EXAMINATION: CT abdomen pelvis w con DATE: 01/02/2024 02:53 INDICATION: Left abdominal pain. TECHNIQUE: Computed tomography (CT) of the abdomen and pelvis was performed with 100 mL Omnipaque 350 intravenous contrast. Automated exposure control and iterative reconstruction technique were employe d. The dose-length product was 433.49 mGy-cm. COMPARISON: CT abdomen and pelvis 11/30/2023 FINDINGS: The visualized portions of the lung bases are clear without pneumonia or pleural effusion. The heart size is normal. No pericardial effusion. Paraesophageal varices are noted. Periumbilical va rices are noted. The liver demonstrates surface nodularity, consistent with cirrhosis. There is mild splenomegaly. The gallbladder, pancreas, adrenal glands, and kidneys are normal. There are no dilated loops of bowel. The appendix is normal. There are no pathologically enlarged lymph nodes. There is a small volume of ascites. There are surgical clips in the scrotum. There is mild lumbar spondylosis. IMPRESSION: 1. Cirrhosis of the liver with portal venous hypertension. 2. Small volume of ascites. Reviewed, dictated and finalized at location E. ANALYST
[2024-01-01 22:58] VITALS: BP 115/68; PULSE 80; RESP 18; TEMP 36.9; O2SAT 100
[2024-01-01 23:33] LABS: Basophils Percent Auto 0.5 % (0.2-1.2); Eosinophils Absolute Auto 0.2 K/mm3 (0-0.3); Eosinophils Percent Auto 4.2 % (0-4.4); Hematocrit 29.7 % (42.0-52.0); Hemoglobin 9.8 g/dL (14.0-18.0); Immature Granulocyte Absolute 0.01 K/mm3 (0.00-0.031); Immature Granulocyte Percent A 0.2 % (0-0.5); Immature Platelet Fraction Pct 5.1 % (0.9-11.2); Lymphocytes Absolute Auto 1.81 K/mm3 (0.9-3.2); Lymphocytes Percent Auto 42.7 % (18.3-44.2); Mean Corpuscular Hemoglobin 30.5 pg (26-34); Mean Corpuscular Volume 92.5 fl (80-100); Mean Platelet Volume 10.5 fl (7.4-10.4); Monocytes Absolute Auto 0.3 K/mm3 (0.1-0.6); Monocytes Percent Auto 6.6 % (2.6-8.5); Neutrophils Absolute Auto 1.9 K/mm3 (1.3-6.7); Neutrophils Percent Auto 45.8 % (45.5-73.1); Platelet Count Result 89 k/mm3 (150-375); Red Blood Count 3.21 M/mm3 (4.6-6.20); Red Cell Distribution Width 15.3 % (11.5-14.5); White Blood Count 4.2 K/mm3 (4.5-10.0)
[2024-01-01 23:43] LABS: Ammonia 22 umol/L (9-30)
[2024-01-02] VITALS (15 sets, daily range): BP systolic 106–118; BP diastolic 60–85; PULSE 60–72; RESP 12–20; TEMP 36.7; O2SAT 99–100
[2024-01-02 00:01] LABS: Anisocytosis 1+ (NORMAL); Ovalocytes 1+ (NORMAL); Platelet Estimate Decreased (Adequate); Schistocytes None Seen (NORMAL)
[2024-01-02 00:19] LABS: Appearance Urine Clear (Clear); Bacteria Urine None Seen /hpf; Bilirubin Urine 1+ (Negative); Blood Urine 3+ (Negative); Color Urine Dark Yellow (Yellow); Glucose Urine UA Negative (Negative); Ketones Urine Trace mg/dL (Negative); Leukocyte Esterase Ur Negative LEU/UL (Negative); Need Manual Microscopic Reviewed; Nitrate Urine Negative (Negative); Non Pathogenic Casts 0-2; Protein Urine Trace mg/dL (Negative); RBC Urine >100 /hpf (0-2); Specific Grav Ur 1.028 (1.001-1.035); Squamous Epithelial Cell Urine None seen /hpf (Few); WBC Urine 0-5 /hpf; pH Urine 5.5 (5.0-9.0)
[2024-01-02 00:28] LABS: Alanine Aminotransferase 39 U/L (6-50); Albumin Level 3.7 g/dL (3.5-5.1); Alkaline Phosphatase 92 U/L (38-126); Anion Gap 6 mmol/L (8-16); Aspartate Amino Transferase 54 U/L (17-59); Bilirubin,Total 1.3 mg/dL (0.2-1.3); Blood Urea Nitrogen 17 mg/dL (9-20); Calcium 9.2 mg/dL (8.4-10.2); Carbon Dioxide 26 mmol/L (22-30); Chloride 106 mmol/L (98-107); Estimated CRCL calculation 124 ml/min; Estimated Glomerular Filt Rate > 60; Glucose 152 mg/dL (65-110); Lipase 188 U/L (23-300); Potassium 3.7 mmol/L (3.4-5.0); Sodium 138 mmol/L (137-145)
[2024-01-02 00:28] LABS: Add Urine Microscopic? YES
--- NOTE | 2024-01-02 02:12 | PC.NURSE ---
Patient called out to nursing station and states his pain is getting worse. EDP Dr. Cancino notified.
--- NOTE | 2024-01-02 02:32 | ED.GENADULT ---
HPI - General Adult General Chief complaint: Altered Mental Status Stated complaint: confusion Time Seen by Provider: 01/02/24 01:19 History of Present Illness HPI narrative: Patient is a 38-year-old male with a past medical history of cirrhosis presents to the emergency department this evening complaining of left-sided abdominal pain. Patient states that approximately 1 week ago he had colonoscopy performed by his conservation officer through an outside facility. Patient states that since then he has been having this left sided abdominal pain and patient is concerned that the pain is due to the colonoscopy irritating a rupturing his cell. Patient denies any nausea or vomiting episodes. Patient admits that he is currently being treated for anemia and the reason why he had the colonoscopy was due to rectal bleeding. He was informed that he does have internal hemorrhoids in addition to a polyp that was removed. Patient is feeling any chest pain or shortness of breath. There are no other modifying, alleviating, or precipitating factors at this time. Related Data Home Medications Medication Instructions Recorded Confirmed Wellbutrin XL 150 mg PO BID 06/24/23 06/24/23 escitalopram oxalate 10 mg PO DAILY 06/24/23 06/24/23 propranolol 10 mg PO BID 06/24/23 06/24/23 rifaximin 550 mg PO BID 06/24/23 06/24/23 thiamine HCl (vitamin B1) 100 mg 100 mg PO DAILY 06/24/23 06/24/23 tablet Allergies Allergy/AdvReac Type Severity Reaction Status Date / Time hydromorphone Allergy Hives Verified 06/23/23 20:34 clindamycin AdvReac Other Verified 06/24/23 10:05 tramadol AdvReac Other Verified 06/24/23 10:05 Review of Systems Review of Systems: All systems are reviewed and are negative unless stated otherwise in the HPI. [facility] Past Medical History Medical History History of cirrhosis Social History Social History Smoking status: Never smoker Second hand tobacco smoke exposure: Yes Alcohol intake: former Drinks per week: 0 Substance use: current Substance use type: marijuana Lack of Transportation: YES Lack of Food: Often True Current Housing: I Have Housing Concerned About Future Housing: YES Difficulty Paying Gas/Electric Bills: No Difficulty Paying for Meds: YES Currently Unemployed: YES Education: Master's Degree or Higher Difficulty w/ Childcare or Family Care: No Spiritual care concerns: No Exam Narrative: General: Alert, awake, afebrile, in no acute distress. HEENT: PERRL, no rhinorrhea, no post nasal drip, oropharynx clear. Neck: Trachea midline, no JVD, no lymphadenopathy. Cardiovascular: Regular rate and rhythm, no murmurs, rubs or gallops, no peripheral edema. Respiratory: Clear to auscultation bilaterally, no tachypnea, no wheezing, no rhonchi, no rubs, no respiratory distress. Abdomen: Soft, tenderness to palpation over the left upper quadrant, nondistended, no rebound, no guarding, no peritoneal signs. Musculoskeletal: No joint swelling or deformity, normal muscle tone. Skin: No rashes or petechia, no signs of infection. Psychiatric: Alert and oriented, normal behavior and judgment for situation. Neurological: Alert and oriented to person, place, and time. Follows all commands. No focal deficits, speech is clear and fluent. Course Vital Signs Vital signs: Vital Signs Temperature 98.5 F 01/01/24 22:58 Pulse Rate 80 01/01/24 22:58 Respiratory Rate 18 01/01/24 22:58 Blood Pressure 115/68 01/01/24 22:58 Pulse Oximetry 100 01/01/24 22:58 Oxygen Delivery Room Air 01/01/24 22:58 Temperature 98.5 F 01/01/24 22:58 Pulse Rate 67 01/02/24 03:31 Respiratory Rate 14 01/02/24 03:31 Blood Pressure 106/76 01/02/24 03:31 Pulse Oximetry 100 01/02/24 03:31 Oxygen Delivery Room Air 01/02/24 01:07 Medical Decision Making RUPINDER Al
[2024-01-02] MEDS: ONDANSETRON INJ 4 MG/2 ML VIAL IV PUSH (02:33)
[2024-01-02] MEDS: MORPHINE SULFATE (*CRX) 4 MG/ML INJ IV PUSH ×2 (02:33→03:28)
--- NOTE | 2024-01-02 03:24 | PC.NURSE ---
Patient called out in pain stating his pain was a 10/10 and it was making his breathing shallow. Notified EDP Dr. Cancino.
== END 2024-01-02 04:58 | disposition home or self-care (01) ==
PROVIDERS: Emergency Provider Emergency Medicine; PCP Emergency Medicine
DX: R10.9 Unspecified abdominal pain (principal); K74.60 Unspecified cirrhosis of liver; R16.1 Splenomegaly, not elsewhere classified; D64.9 Anemia, unspecified; K64.8 Other hemorrhoids; Z86.010 Personal history of colon polyps; K76.6 Portal hypertension
CPT/HCPCS: 36415; 74177; 80053; 81001; 82140; 83690; 85025; 85055; 96374; 96375; 96376; 99284; J2270; J2405; Q9967